=== PATIENT | male | born 1980 | race Caucasian/White ===

== ENCOUNTER 2018-06-12 13:24 | Emergency (ER) | payer SELFPAY ==
[~2018-06-12] VITALS: Ht 182.9 cm; Wt 92.5 kg
--- NOTE | 2018-06-12 13:25 | NUR ---
Presents to ER stating "i have vertigo" c/o can't hear on the left ear. Patient stating he had an ear infection and already taking ear drops and zpak from clinic. Patient is a/ox 4, breathing even and unlabored. no sob, nad, vitals stable. safety and comfort measures in place. Awaiting md orders.
[2018-06-12] MEDS ORDERED: IV NS 0.9% 1,000 ML BAG IV ONE (14:30)
--- NOTE | 2018-06-12 14:40 | NUR ---
new iv started on lac, 20g. blood drawn and sent to lab.
[2018-06-12 14:47] LABS: BASOPHILS # (AUTO) 0.1 /CMM (0.0-0.2); BASOPHILS % (AUTO) 0.8 % (0.0-2.0); EOSINOPHILS % (AUTO) 0.3 % (0.0-6.0); HEMATOCRIT 52 % (39-51); HEMOGLOBIN 16.9 g/dL (13.5-17.5); LYMPHOCYTES # (AUTO) 1.7 /CMM (0.8-4.8); LYMPHOCYTES % (AUTO) 23.1 % (20.0-44.0); MEAN CORPUSCULAR HGB CONC 33 g/dl (31.0-36.0); MEAN CORPUSCULAR VOLUME 96 fL (80-96); MONOCYTES # (AUTO) 0.3 /CMM (0.1-1.30); MONOCYTES % (AUTO) 4.4 % (2.0-12.0); NEUTROPHILS # (AUTO) 5.1 /CMM (1.8-8.9); NEUTROPHILS % (AUTO) 71.4 % (43.0-81.0); PLATELET COUNT (AUTO) 225 /CMM (150-450); RDW COEFFICIENT OF VARIATION 12.5 (11.5-15.0); RED BLOOD CELL COUNT(AUTO) 5.36 MIL/uL (4.5-6.0); WHITE BLOOD COUNT (AUTO) 7.2 K/uL (4.3-11.0)
[2018-06-12 14:56] LABS: CALCIUM, SERUM 8.7 mg/dL (8.5-10.1); CREATININE 0.9 mg/dL (0.6-1.3); POTASSIUM 4.3 mmol/L (3.5-5.1)
[2018-06-12] MEDS ORDERED: AMLODIPINE BESYLATE 5 MG TABLET ONE (14:59)
[2018-06-12] MEDS ORDERED: AMLODIPINE BESYLATE 5 MG TABLET PO ONE (15:00)
[2018-06-12 15:02] LABS: ALBUMIN 4.3 g/dL (3.4-5.0); BILIRUBIN,DIRECT 0.2 mg/dL (0.0-0.2); BILIRUBIN,TOTAL 0.8 mg/dL (0.2-1.0); TOTAL PROTEIN, SERUM 7.6 g/dL (6.4-8.2)
--- NOTE | 2018-06-12 15:05 | NUR ---
patient taken to ct.
--- NOTE | 2018-06-12 15:11 | NUR ---
patient returned from ct in stable condition.
[2018-06-12 16:29] VITALS: BP 149/79
--- NOTE | 2018-06-12 16:31 | NUR ---
IV removed. Catheter intact and site benign. Pressure and 4x4 applied to site. No bleeding noted. Patient discharged to home in stable condition. Written and verbal after care instructions given. Patient verbalizes understanding of instruction.
== END 2018-06-12 16:30 | disposition home or self-care (01) ==
LOC: ER 13:26
DX: H60.92 Unspecified otitis externa, left ear (principal); R03.0 Elevated blood-pressure reading, without diagnosis of hypertension; R51 Headache; Z88.0 Allergy status to penicillin
CPT/HCPCS: 36415; 70460; 80048; 80076; 82962; 85025; 85652; 86140; 99285; A4606; J7030; Z7610